=== PATIENT | male | born 1990 | race Two or more races ===

== ENCOUNTER 2025-02-27 17:46 | Emergency (ER) | payer SELFPAY ==
[~2025-02-27] VITALS: Ht 165.1 cm; Wt 81.8 kg
[2025-02-27 18:09] VITALS: TEMP 99.5
[2025-02-27] MEDS: ChlordiazePOXIDE HCL 25 MG CAPSULE PO ONE (18:43)
[2025-02-27] MEDS: FAMOTIDINE 20 MG/2 ML VIAL IVP ONE (18:43)
[2025-02-27 18:51] LABS: BASOPHILS % (AUTO) 0.3 % (0.0-2.0); EOSINOPHILS % (AUTO) 0 % (1.0-6.0); HEMATOCRIT 47.3 % (41-53); HEMOGLOBIN 15.6 g/dL (13.5-17.5); LYMPHOCYTES # (AUTO) 1.4 K/uL (1.0-4.8); LYMPHOCYTES % (AUTO) 13.7 % (22.0-44.0); MEAN CORPUSCULAR HEMOGLOBIN 28.7 pg (26.0-34.0); MEAN CORPUSCULAR HGB CONC 32.9 G/dL (31.0-37.0); MEAN CORPUSCULAR VOLUME 87 fL (80-100); MONOCYTES # (AUTO) 0.5 K/uL (0.1-1.0); MONOCYTES % (AUTO) 4.7 % (2.0-9.0); NEUTROPHILS # (AUTO) 8.6 K/uL (1.8-7.7); NEUTROPHILS % (AUTO) 81.3 % (40.0-70.0); PLATELET COUNT (AUTO) 286 K/uL (150-450); RED BLOOD CELL COUNT(AUTO) 5.43 MIL/uL (4.50-5.90); RED CELL DISTRIBUTION WIDTH 13.3 % (11.5-14.5); WHITE BLOOD COUNT (AUTO) 10.5 K/uL (4.5-11.0)
[2025-02-27 18:58] LABS: ANION GAP 8 mmol/L (8-16); CALCIUM, TOTAL 8.1 mg/dL (8.8-10.5); CARBON DIOXIDE 30 mmol/L (22-29); CHLORIDE 100 mmol/L (98-107); CREATININE 0.99 mg/dL (0.60-1.30); GLOMERULAR FILTR. RATE CALC > 60 mL/min (>60); GLUCOSE,RANDOM 150 mg/dL (70-110); POTASSIUM 3.4 mmol/L (3.5-5.1); SODIUM SERUM 138 mmol/L (136-145); UREA NITROGEN, BLOOD 11 mg/dL (7-18)
[2025-02-27 19:06] LABS: TROPONIN I-HIGH SENSITIVITY 33 ng/L (<76)
[2025-02-27] MEDS: MAGNESIUM SULFATE 2 GM, MVI, ADULT NO.1 WITH VIT K 10 ML, THIAMINE 100 MG, FOLIC ACID 1... IV ONE (19:30)
[2025-02-27 19:39] LABS: ALCOHOL, URINE DRUG SCREEN POSITIVE (NEGATIVE); AMPHET/METH SCREEN,URINE NEGATIVE (NEGATIVE); BARBITURATE SCREEN, URINE NEGATIVE (NEGATIVE); BENZODIAZEPINES SCREEN,URINE NEGATIVE (NEGATIVE); CANNABINOID SCREEN,URINE NEGATIVE (NEGATIVE); COCAINE SCREEN,URINE NEGATIVE (NEGATIVE); METHADONE SCREEN, URINE NEGATIVE (NEGATIVE); OPIATE SCREEN,URINE NEGATIVE (NEGATIVE); PHENCYCLIDINE SCREEN,URINE NEGATIVE (NEGATIVE)
[2025-02-27 19:49] VITALS: BP 121/56; PULSE 126; RESP 24; O2SAT 98
== END 2025-02-27 21:47 | disposition left against medical advice (07) ==
LOC: EMS 17:46
DX: F10.129 Alcohol abuse with intoxication, unspecified (principal); K29.20 Alcoholic gastritis without bleeding; F14.90 Cocaine use, unspecified, uncomplicated; I49.9 Cardiac arrhythmia, unspecified; Y90.8 Blood alcohol level of 240 mg/100 ml or more
CPT/HCPCS: 99284; 96365; 96366; 96375; 80048; 84484; 85025; 36415; 93005; 80307; G0480; J3490 ×3; J3411; J3475; J7030

== ENCOUNTER 2025-10-02 15:52 | Inpatient (IN) | payer SELFPAY ==
[~2025-10-02] VITALS: Ht 165.1 cm; Wt 86.4 kg
[2025-10-02 16:13] LABS: COVID AG,FIA SOURCE NASAL SWAB
[2025-10-02 16:18] LABS: PLATELET COUNT (AUTO) 271 K/uL (150-450); RED BLOOD CELL COUNT(AUTO) 4.75 MIL/uL (4.50-5.90); RED CELL DISTRIBUTION WIDTH 13.8 % (11.5-14.5); WHITE BLOOD COUNT (AUTO) 4.4 K/uL (4.5-11.0)
[2025-10-02 16:25] LABS: CALCIUM, TOTAL 8.0 mg/dL (8.8-10.5); CREATININE 0.91 mg/dL (0.60-1.30); GLOMERULAR FILTR. RATE CALC > 60 mL/min (>60); GLUCOSE,RANDOM 118 mg/dL (70-110); SODIUM SERUM 143 mmol/L (136-145); UREA NITROGEN, BLOOD 10 mg/dL (7-18)
[2025-10-02 16:29] LABS: ASPARTATE AMINOTRANSFERASE 49.0 U/L (15-37); TOTAL PROTEIN, SERUM 7.9 g/dL (6.4-8.2)
[2025-10-02 16:30] LABS: ALCOHOL, BLOOD (SERUM) 411.0 mg/dL (0-10)
[2025-10-02 16:41] LABS: SARS-COV2 (COVID) ANTIGEN,FIA Negative (Negative)
[2025-10-02 17:21] LABS: APPEARANCE,URINE CLEAR (CLEAR); GLUCOSE, URINE (UA) NEGATIVE (NEGATIVE); LEUKOCYTE ESTERASE ,URINE NEGATIVE (NEGATIVE); NITRATE,URINE NEGATIVE (NEGATIVE); OCCULT BLOOD,URINE NEGATIVE (NEGATIVE); PH,URINE DRUG SCREEN 6.5 (5.0-8.0); SPECIFIC GRAVITIY, URINE 1.017 (1.003-1.030)
[2025-10-02 17:24] LABS: ALCOHOL, URINE DRUG SCREEN POSITIVE (NEGATIVE); AMPHET/METH SCREEN,URINE NEGATIVE (NEGATIVE); BARBITURATE SCREEN, URINE NEGATIVE (NEGATIVE); CANNABINOID SCREEN,URINE NEGATIVE (NEGATIVE); COCAINE SCREEN,URINE NEGATIVE (NEGATIVE); METHADONE SCREEN, URINE NEGATIVE (NEGATIVE)
[2025-10-02] MEDS ORDERED: ONDANSETRON HCL 4 MG/2 ML VIAL IVP PRN (18:15)
[2025-10-02] MEDS ORDERED: MAGNESIUM HYDROXIDE SUSPENSION 30 ML UDCUP PO PRN (18:15)
[2025-10-02] MEDS ORDERED: ACETAMINOPHEN 325 MG TABLET PO PRN (18:15)
[2025-10-02] MEDS: 1: MAGNESIUM SULFATE 2 GM, MVI, ADULT NO.1 WITH VIT K 10 ML, THIAMINE 100 MG, FOLIC ACID IV SCH (18:50)
[2025-10-02] MEDS: LORazepam 2 MG/ML VIAL IVP PRN (19:32)
[2025-10-02] MEDS: FAMOTIDINE 20 MG TABLET PO SCH (20:17)
[2025-10-02] MEDS: ZOLPIDEM TARTRATE 5 MG TABLET PO PRN (22:16)
[2025-10-03 15:53] VITALS: BP 117/86; PULSE 108; RESP 18; TEMP 98; O2SAT 98
[2025-10-03 16:03] VITALS: BP 117/86; PULSE 103; RESP 18; TEMP 98; O2SAT 98
[2025-10-03 19:28] VITALS: BP 131/92; PULSE 102; RESP 18; TEMP 98.2; O2SAT 97
[2025-10-04 06:05] VITALS: BP 124/85; PULSE 93; RESP 18; TEMP 98.2; O2SAT 96
[2025-10-04 07:57] VITALS: BP 125/87; PULSE 97; RESP 18; TEMP 98.2; O2SAT 98
[2025-10-04] MEDS ORDERED: SODIUM CHLORIDE 0.9% 1,000 ML ONE (12:38)
[2025-10-04] MEDS: SERTRALINE HCL 50 MG TABLET PO SCH (12:43)
[2025-10-04] MEDS ORDERED: FAMO20 PO (15:51)
[2025-10-04] MEDS ORDERED: FOLI-130 PO (15:51)
[2025-10-04] MEDS ORDERED: CHLO5CAP4 PO (15:51)
[2025-10-04] MEDS ORDERED: SERT-439 PO (15:51)
[2025-10-04] MEDS ORDERED: MULT-1203 PO (15:51)
[2025-10-04] MEDS ORDERED: THIA100T80 PO (15:51)
== END 2025-10-04 16:30 | disposition home or self-care (01) | DRG 92 ==
LOC: EMS 15:52 → EDH 18:09 → 4E 10-03 15:40
PROVIDERS: ADMIT Internal Medicine; ATTEND Internal Medicine
PROC: GZ56ZZZ Individual Psychotherapy, Supportive (ICD-10-PCS; principal; 2025-10-04)
PROC: GZ58ZZZ Individual Psychotherapy, Cognitive-Behavioral (ICD-10-PCS; 2025-10-04)
DX: G92.9 Unspecified toxic encephalopathy (principal); F10.139 Alcohol abuse with withdrawal, unspecified; F10.129 Alcohol abuse with intoxication, unspecified; F33.0 Major depressive disorder, recurrent, mild; Y90.8 Blood alcohol level of 240 mg/100 ml or more; Z20.822 Contact with and (suspected) exposure to COVID-19
CPT/HCPCS: 80048; 80076; 80307; 81003; 85025; 96365; 96375; 99285; G0378; G0480; J2060; J3411; J3475; J3490; J7030